=== PATIENT | female | born 2000 | race Caucasian/White ===

== ENCOUNTER 2020-01-04 07:32 | Emergency (ER) | payer SELFPAY ==
[~2020-01-04] VITALS: Ht 162.6 cm; Wt 63.6 kg
[2020-01-04 07:41] VITALS: BP 0/0
== END 2020-01-04 11:36 | disposition expired ==
LOC: EDUNIT# 07:32 → EMS 07:39
DX: I46.9 Cardiac arrest, cause unspecified (principal); F17.210 Nicotine dependence, cigarettes, uncomplicated; F12.90 Cannabis use, unspecified, uncomplicated
CPT/HCPCS: 92950; 99291; Z7502